=== PATIENT | male | born 1965 | race Caucasian/White ===

== ENCOUNTER 2016-11-13 00:46 | Emergency (ER) | payer MEDICAID ==
[~2016-11-13] VITALS: Ht 165.1 cm; Wt 83.9 kg
[~2016-11-13 00:46] MED LIST: COLCHICINE0.6 M1 PO; INDOCIN25 MG/5 ML PO; NKM; TRAMADOL HCL50 MG ORAL
[2016-11-13] MEDS ORDERED: Ketorolac 60mg Inj IM ONE (01:30)
[2016-11-13] MEDS ORDERED: INDOCIN50 MG RECTAL (02:23)
[2016-11-13] MEDS ORDERED: BACTRIM DS TAB1 EAC1 ORAL (02:23)
[2016-11-13] MEDS ORDERED: HYDROCODON-ACE1 EA15 ORAL (02:23)
--- NOTE | 2016-11-13 02:23 | Emergency Room Report ---
History of Present Illness General Chief Complaint: Pain Source: Patient Present Illness HPI Is a 51-year-old male who is right-hand dominant. He has a history of gout. He was here before for foot pain and diagnosed with gout. Medication prescribed up with the pain. He present with one-day history of right hand pain. Start in the right third knuckle and dorsum of his hand. Now tracking up. Pain is 8/10. Worse with movement. No fever or chills. No nausea no vomiting. No trauma. Allergies: Coded Allergies: No Known Allergies (Unverified , 06/06/16) Patient History Past Medical History: see triage record, old chart reviewed Past Surgical History: other Pertinent Family History: none Social History: Denies: smoking Immunizations: other Reviewed Nursing Documentation: PMH: Agreed, PSxH: Agreed Review of Systems Eye: Denies: blurred vision, eye pain ENT: Denies: ear pain, nose congestion, throat swelling Respiratory: Denies: cough, shortness of breath Cardiovascular: Denies: chest pain, palpitations Gastrointestinal: Denies: abdominal pain, diarrhea, nausea, vomiting Musculoskeletal: Reports: joint pain, joint swelling, Denies: back pain Skin: Denies: rash Neurological: Denies: headache, numbness Endocrine: Denies: increased thirst, increased urine Hematologic/Lymphatic: Denies: easy bruising All Other Systems: negative except mentioned in HPI Physical Exam Vital Signs Date Time Temp Pulse Resp B/P Pulse Ox O2 Delivery O2 Flow Rate FiO2 11/13/16 00:59 98.2 85 18 124/85 96 Room Air vitals normal Sp02 EP Interpretation: reviewed, normal General Appearance: well appearing, no apparent distress, alert Head: normocephalic, atraumatic Eyes: bilateral eye EOMI, bilateral eye PERRL ENT: hearing grossly normal, normal pharynx Neck: full range of motion, supple, no meningismus Respiratory: chest non-tender, lungs clear, normal breath sounds Cardiovascular #1: regular rate, rhythm, no murmur Gastrointestinal: normal bowel sounds, non tender, no mass, no organomegaly, no bruit, non-distended Musculoskeletal: back normal, gait/station normal, normal range of motion, other - Right hand: There is edema and inflammation to the right third knuckle. Also erythema and edema to the dorsum of the hand. It measured about 3 cm. Neurologic: alert, oriented x3 Psychiatric: mood/affect normal Skin: warm/dry Medical Decision Making Diagnostic Impression: Primary Impression: Arthralgia of hand, right ER Course Patient presents with pain to the right hand and a third MCP joint. I did an aspiration to see if there is any pus and there was none. This could be gout but in an uncommon area. We'll treat him for gout and also put on antibiotics for possible cellulitis. No evidence of septic joint. No evidence of necrotizing fasciitis. Last Vital Signs Date Time Temp Pulse Resp B/P Pulse Ox O2 Delivery O2 Flow Rate FiO2 11/13/16 00:59 98.2 85 18 124/85 96 Room Air Status: improved Disposition: HOME, SELF-CARE Condition: Stable Scripts Indomethacin (Indocin) 50 Mg Supp.rect 50 MG RECTAL TID, #30 SUPP Prov: OREN BRIGGS M.D. 11/13/16 Trimethoprim/Sulfamethoxazole 160/800* (BACTRIM DS TABLET*) 1 Each Tablet 1 TAB ORAL Q12H, #14 TAB 0 Refills Prov: OREN BRIGGS M.D. 11/13/16 Hydrocodone/Acetaminophen 5-325* (HYDROCODONE/ACETAMINOPHEN 5-325*) 1 Each Tablet 1 TAB ORAL Q6H Y for For Pain, #30 TAB 0 Refills Prov: OREN BRIGGS M.D. 11/13/16 Referrals: [facility],REFERRING (PCP) Additional Instructions: Followup with your DrJuan Antonio in 2-3 days recheck. Return if worse. OREN BRIGGS M.D. November 13, 2016 02:23
[2016-11-13 02:25] VITALS: BP 116/67
== END 2016-11-13 02:25 | disposition home or self-care (01) ==
LOC: EMR 02:16
DX: M25.541 Pain in joints of right hand (principal)
CPT/HCPCS: 96372; 99284

== ENCOUNTER 2016-11-17 00:06 | Emergency (ER) | payer MEDICAID ==
[~2016-11-17] VITALS: Ht 165.1 cm; Wt 88.5 kg
[~2016-11-17 00:06] MED LIST changes: +BACTRIM DS TAB1 EAC1 ORAL; +HYDROCODON-ACE1 EA15 ORAL; +INDOCIN50 MG RECTAL
[2016-11-17 00:41] VITALS: BP 132/73
[2016-11-17] MEDS ORDERED: Ketorolac 30mg Inj IV ONE (00:45)
[2016-11-17] MEDS ORDERED: cefTRIAXone 1 GM in NS 55 ML IVPB ONE (00:45)
[2016-11-17 01:11] LABS: EOSINOPHILS % (AUTO) 2.4 % (0.0-3.0); LYMPHOCYTES % (AUTO) 39.9 % (20.0-45.0); MEAN CORPUSCULAR HEMOGLOBIN 29.4 PG (27.0-31.0); MEAN CORPUSCULAR HGB CONC 33.8 G/DL (32.0-36.0); MEAN CORPUSCULAR VOLUME 87 FL (80-99); MEAN PLATELET VOLUME 8.4 FL (6.5-10.1); MONOCYTES % (AUTO) 7.3 % (1.0-10.0); NEUTROPHILS % (AUTO) 49.5 % (45.0-75.0); PLATELET COUNT 210 K/UL (150-450); RED BLOOD COUNT 5.56 M/UL (4.70-6.10); RED CELL DISTRIBUTION WIDTH 13.1 % (11.6-14.8); WHITE BLOOD COUNT 10.8 K/UL (4.8-10.8)
[2016-11-17 01:24] LABS: ANION GAP 13 (5-15); CALCIUM 10.1 mg/dL (8.6-10.2); CARBON DIOXIDE 24 mEQ/L (20-30); CHLORIDE 99 mEQ/L (98-107); CREATININE 0.8 mg/dL (0.7-1.2); GLOMERULAR FILTRATION RATE > 60 mL/min (>60); HEMOLYSIS 4; POTASSIUM 4.5 mEQ/L (3.4-4.9); SODIUM 136 mEQ/L (135-145)
[2016-11-17 01:35] VITALS: BP 133/75
--- NOTE | 2016-11-17 01:46 | Emergency Room Report ---
History of Present Illness General Chief Complaint: Pain Source: Patient Present Illness HPI Is a 51-year-old male who is right-hand dominance. I saw him couple days ago for right hand pain and swelling. He has a history of gout he said this felt like out. He was given Indocin and also antibiotics. He said is mildly better. He used was here with his daughter who had chest pain. I told to recheck in so I can reexamine him. Since then swelling the now limited. He denies any fever chills denies any nausea vomiting. Pain is 7/10. Allergies: Coded Allergies: No Known Allergies (Unverified , 06/06/16) Patient History Past Medical History: see triage record, old chart reviewed Past Surgical History: none Pertinent Family History: none Social History: Denies: smoking Immunizations: other Reviewed Nursing Documentation: PMH: Agreed, PSxH: Agreed Review of Systems Eye: Denies: blurred vision, eye pain ENT: Denies: ear pain, nose congestion, throat swelling Respiratory: Denies: cough, shortness of breath Cardiovascular: Denies: chest pain, palpitations Gastrointestinal: Denies: abdominal pain, diarrhea, nausea, vomiting Musculoskeletal: Reports: joint pain, joint swelling, Denies: back pain Skin: Denies: rash Neurological: Denies: headache, numbness Endocrine: Denies: increased thirst, increased urine Hematologic/Lymphatic: Denies: easy bruising All Other Systems: negative except mentioned in HPI Physical Exam Vital Signs Date Time Temp Pulse Resp B/P Pulse Ox O2 Delivery O2 Flow Rate FiO2 11/17/16 00:26 97.7 67 18 132/73 97 Room Air vitals normal Sp02 EP Interpretation: reviewed, normal General Appearance: well appearing, no apparent distress, alert Head: normocephalic, atraumatic Eyes: bilateral eye EOMI, bilateral eye PERRL ENT: hearing grossly normal, normal pharynx Neck: full range of motion, supple, no meningismus Respiratory: chest non-tender, lungs clear, normal breath sounds Cardiovascular #1: regular rate, rhythm, no murmur Gastrointestinal: normal bowel sounds, non tender, no mass, no organomegaly, no bruit, non-distended Musculoskeletal: back normal, gait/station normal, normal range of motion, other - rt hand: TTP and mild edema to 3rd MCP. no redness. Psychiatric: mood/affect normal Skin: warm/dry Medical Decision Making Diagnostic Impression: Primary Impression: Arthralgia of right hand ER Course Patient with hand pain. This may be gout or other inflammatory process. I see no evidence of septic joint. Pain resolved with Toradol. This may be also cellulitis. Labs unremarkable. We'll discharge home. X-ray showed no evidence of any fracture or dislocation. Lab Results Impression labs normal. Other X-Ray Diagnostic Results Other X-Ray Diagnostic Results : X-Ray Ordered: xr hand Date: November 17, 2016 Time: 01:46 EP Interpretation: Yes Findings: no fractures, no dislocation, no soft tissue swelling Number of Views: 3 Last Vital Signs Date Time Temp Pulse Resp B/P Pulse Ox O2 Delivery O2 Flow Rate FiO2 11/17/16 00:41 97.7 87 18 132/73 97 Room Air Status: improved Disposition: HOME, SELF-CARE Condition: Stable Referrals: [facility],REFERR[facility] (PCP) Additional Instructions: Continue with your medication. Return if worse. Followup with your in 7 days OREN BRIGGS M.D. November 17, 2016 01:46
[2016-11-17 01:49] VITALS: BP 133/75
--- NOTE | 2016-11-17 11:04 | Diagnostic Imaging Report ---
Indication: pain Findings: 3 views of the right hand were obtained. Normal bony mineralization and alignment are demonstrated. No acute fractures, erosions, or periosteal reaction are seen. Soft tissues are unremarkable. Impression: Negative examination of the right hand.
== END 2016-11-17 01:49 | disposition home or self-care (01) ==
LOC: EMR 01:09
DX: M25.541 Pain in joints of right hand (principal)
CPT/HCPCS: 36415; 73130; 80048; 85025; 96374; 96375; 99284; J0696; J1885